=== PATIENT | female | born 1975 | race Caucasian/White ===

== ENCOUNTER 2022-03-12 19:38 | Emergency (ER) | payer BC ==
[2022-03-12] MEDS ORDERED: predniSONE 20 MG TAB ONE (20:11)
[2022-03-12] MEDS ORDERED: Ketorolac Tromethamine 30 MG/ML VIAL ONE (20:11)
[2022-03-12 21:51] LABS: Bilirubin Negative (Negative); Blood, Urine Large (Negative); Clarity Clear (Clear); Glucose, Urine (Dipstick) Negative (Negative); Ketone, Urine Negative (Negative); Leukocyte Negative (Negative); Nitrite Negative (Negative); Protein, Urine (Dipstick) Negative (Neg-Trace); Urobilinogen 0.2 mg/dL (Less than 2); pH, Urine 5.5 (5.0-9.0)
[2022-03-12 21:53] LABS: Pregnancy Test - Urine (BHCG) Negative (Negative); Pregu Control Background? CLEAR/WHITE (CLR/WHITE); Pregu Control Bar Appear? YES (CONTROL BAR)
[2022-03-12 22:00] LABS: Bacteria/HPF Rare-Few HPF (None Seen)
[2022-03-12 22:01] LABS: Mucous/LPF 4+ LPF (<2+)
== END 2022-03-12 22:15 | disposition home or self-care (01) ==
LOC: MADERS 19:38
DX: S33.5XXA Sprain of ligaments of lumbar spine, initial encounter (principal)
CPT/HCPCS: 74176; 81003; 81015; 81025; 96372; J1885; J7512

== ENCOUNTER 2022-05-28 19:42 | Emergency (ER) | payer BC ==
[2022-05-28] MEDS ORDERED: cefTRIAXone\\ROCEPHIN 1 GM VIAL ONE (20:01)
[2022-05-28] MEDS ORDERED: Ondansetron ODT 4 MG TAB ONE (20:01)
[2022-05-28] MEDS ORDERED: Lidocaine 1% (PF) 30 ML VIAL ONE (20:02)
[2022-05-28] MEDS ORDERED: Ibuprofen 800 MG TAB ONE (20:03)
[2022-05-28] MEDS ORDERED: Dexamethasone 10 MG/ML VIAL ONE ×2 (20:03→20:29)
[2022-05-28] MEDS ORDERED: Acetaminophen 500 MG TAB ONE (20:03)
== END 2022-05-28 21:54 | disposition home or self-care (01) ==
LOC: MADERS 19:42
DX: H66.93 Otitis media, unspecified, bilateral (principal); F17.210 Nicotine dependence, cigarettes, uncomplicated; Z20.822 Contact with and (suspected) exposure to COVID-19
CPT/HCPCS: 87081; 87430; 87804; 90471; 96372; J0696; J1100; J2001; Q0162; U0003; U0005

== ENCOUNTER 2023-02-02 17:50 | Emergency (ER) | payer BC, SELFPAY ==
[2023-02-02] MEDS ORDERED: predniSONE 10 MG TAB ONE (18:11)
[2023-02-02] MEDS ORDERED: predniSONE 20 MG TAB ONE (18:11)
[2023-02-02] MEDS ORDERED: Ketorolac Tromethamine 30 MG/ML VIAL ONE (18:11)
== END 2023-02-02 18:28 | disposition home or self-care (01) ==
LOC: MADERS 17:50
DX: S46.912A Strain of unspecified muscle, fascia and tendon at shoulder and upper arm level, left arm, initial encounter (principal); F17.210 Nicotine dependence, cigarettes, uncomplicated; X50.1XXA Overexertion from prolonged static or awkward postures, initial encounter
CPT/HCPCS: 96372; 99282; J1885; J7512

== ENCOUNTER 2024-01-06 20:22 | Emergency (ER) | payer BC ==
[2024-01-06] MEDS ORDERED: diphenhydrAMINE 50 MG/ML VIAL ONE (21:21)
[2024-01-06] MEDS ORDERED: Ketorolac Tromethamine 30 MG (1 mL) VIAL ONE (21:22)
[2024-01-06] MEDS ORDERED: Metoclopramide HCl 10 MG (2 mL) VIAL ONE (21:22)
[2024-01-06] MEDS ORDERED: Sodium Chloride 0.9% 1,000 ML ONE (21:22)
[2024-01-06 21:29] LABS: #Basophils 0.1 thou/uL (0.0-0.2); #Eosinphils 0.2 thou/uL (0.0-0.7); #Lymphocytes 3.1 thou/uL (1.20-3.40); #Monocytes 0.6 thou/uL (0.11-0.59); #Neutrophils 5.7 thou/uL (1.40-6.50); %Basophils 0.7 % (0.0-1.0); %Eosinophils 2.1 % (0.0-10.0); %Lymphocytes 32.1 % (21.0-51.0); %Monocytes 6.3 % (0.0-10.0); %Neutrophils 58.7 % (42.0-75.0); Hematocrit 45.7 % (36.0-47.0); Hemoglobin 14.4 g/dL (12.0-16.0); Mean Corpuscular HGB CONC 31.5 g/dL (32.0-36.0); Mean Corpuscular Hemoglobin 27.6 pg (27.0-31.0); Mean Corpuscular Volume 87.6 fl (78.0-98.0); Mean Platelet Volume 5.9 fL (7.4-10.4); Platelet Count 298 10x3/uL (130-400); RBC Distribution Width 12.4 % (11.5-14.5); Red Blood Cell (RBC) Count 5.22 mill/uL (4.20-5.40); White Blood Cell (WBC) Count 9.7 10x3/uL (4.8-10.8)
[2024-01-06 21:38] LABS: Bilirubin Negative (Negative); Blood, Urine Negative (Negative); Clarity Clear (Clear); Glucose, Urine (Dipstick) Negative (Negative); Ketone, Urine Negative (Negative); Leukocyte Negative (Negative); Nitrite Negative (Negative); Protein, Urine (Dipstick) Negative (Neg-Trace); Specific Gravity, Urine 1.015 (1.005-1.030); Urobilinogen 0.2 mg/dL (Less than 2); pH, Urine 6.5 (5.0-9.0)
[2024-01-06 21:40] LABS: BHCG - Serum Negative (NEGATIVE); Pregs Control Background? CLEAR/WHITE (CLR/WHITE); Pregs Control Bar Appear? YES (CONTROL BAR)
[2024-01-06 21:42] LABS: CAUTI Indications for Culture Dysuria,urgency,freq; RBC/HPF 0-3 HPF (0-3); Squamous Epithelial 0-3 HPF (0-3); WBC/HPF None Seen HPF (0-3)
[2024-01-06 21:43] LABS: Urine Culture Reflex No No
[2024-01-06 21:50] LABS: ALT (SGPT) 41 U/L (8-55); AST (SGOT) 28 U/L (5-34); Albumin 4.2 g/dL (3.5-5.0); Alkaline Phosphatase 57 U/L (40-110); Anion Gap 15 mmol/L (10-20); BUN (Urea Nitrogen) 9 mg/dL (7.0-18.7); Bilirubin, Total 0.3 mg/dL (0.2-1.2); Calc. Creatinine Clearance 0 mL/min (70-130); Calcium 9.3 mg/dL (7.8-10.44); Carbon Dioxide 23 mmol/L (22-29); Chloride 107 mmol/L (98-107); Estimated GFR 85; Globulin 2.3 g/dL (2.4-3.5); Glucose 123 mg/dL (70-105); Potassium 3.5 mmol/L (3.5-5.1); Protein, Total 6.5 g/dL (6.0-8.3); Sodium 141 mmol/L (136-145)
[2024-01-06 21:52] LABS: Troponin I 0.016 ng/mL (< 0.028)
[2024-01-06 22:05] LABS: Influenza A by NAA Not Detected (NotDetected); Influenza B by NAA Not Detected (NotDetected); SARS-CoV-2 NAA Rapid Test Not Detected (NotDetected)
== END 2024-01-06 22:20 | disposition home or self-care (01) ==
LOC: MADERS 20:22
DX: R51.9 Headache, unspecified (principal); M79.10 Myalgia, unspecified site; R11.0 Nausea; Z55.6 Problems related to health literacy; F17.290 Nicotine dependence, other tobacco product, uncomplicated
CPT/HCPCS: 71045; 80053; 81001; 84484; 84703; 85025; 93005; 96361; 96374; 96375; J1200; J1885; J2765; J7050

== ENCOUNTER 2025-04-04 20:24 | Emergency (ER) | payer BC ==
[2025-04-04] MEDS ORDERED: HYDROcodone/Acetaminophen 10/325 mg Tablet ONE (21:22)
[2025-04-04] MEDS ORDERED: Ketorolac Tromethamine 30 MG (1 mL) VIAL ONE (21:22)
== END 2025-04-04 23:42 | disposition home or self-care (01) ==
LOC: MADERS 20:24
DX: S42.034A Nondisplaced fracture of lateral end of right clavicle, initial encounter for closed fracture (principal); S90.01XA Contusion of right ankle, initial encounter; S70.01XA Contusion of right hip, initial encounter; S80.01XA Contusion of right knee, initial encounter; F17.290 Nicotine dependence, other tobacco product, uncomplicated; W01.0XXA Fall on same level from slipping, tripping and stumbling without subsequent striking against object, initial encounter
CPT/HCPCS: 72192; 96372; J1885